=== PATIENT | male | born 1955 | race Caucasian/White ===

== ENCOUNTER 2022-02-10 14:38 | Emergency (ER) | payer OTHER ==
[~2022-02-10] VITALS: Ht 190.5 cm; Wt 108.9 kg
[2022-02-10] MEDS ORDERED: ESCI20TA PO (14:51)
[2022-02-10] MEDS ORDERED: [UNRECOGNIZED DRUG - OTHER] PO (14:51)
[2022-02-10] MEDS ORDERED: LINA72CA PO (14:53)
[2022-02-10] MEDS ORDERED: NEOMY/BACITRA/POLYMYXIN B OINT UD PACKET TP ONE ×2 (16:45→17:53)
--- NOTE | 2022-02-10 18:36 | NUR ---
PT WAS EVALUATED BY DR HALL.PT WAS D/C'd TO HOME. D/C INSTRUCTIONS GIVEN TO THE PT BY DR HALL.
[2022-02-10 18:37] VITALS: BP 141/72
== END 2022-02-10 18:38 | disposition home or self-care (01) ==
LOC: ER 14:38
DX: S09.90XA Unspecified injury of head, initial encounter (principal); S00.83XA Contusion of other part of head, initial encounter; W22.8XXA Striking against or struck by other objects, initial encounter; Y92.89 Other specified places as the place of occurrence of the external cause
CPT/HCPCS: 70450; A4663